=== PATIENT | female | born 1945 | race Caucasian/White ===

== ENCOUNTER → 2017-10-01 | Outpatient (CLI) | payer OTHER ==
[~2017-10-01] MED LIST: ASPI81EC PO; MAGGLU250 PO; METO50ER PO; ROSU5 PO
== END | disposition home or self-care (01) ==
LOC: PLD 07:49 → LAB SHORT 07:49
DX: C44.212 Basal cell carcinoma of skin of right ear and external auricular canal (principal); L57.8 Other skin changes due to chronic exposure to nonionizing radiation; D22.5 Melanocytic nevi of trunk
CPT/HCPCS: 88305; 88342

== ENCOUNTER → 2017-10-22 | Outpatient (CLI) | payer OTHER | END | disposition home or self-care (01) | LOC: PLD 14:05 → LAB SHORT 14:05 | DX: L85.8 Other specified epidermal thickening (principal) | CPT/HCPCS: 88305 ==

== ENCOUNTER → 2018-01-18 | Outpatient (CLI) | payer OTHER | LOC: LAB SHORT 14:42 → PLD 14:42 | DX: C44.310 Basal cell carcinoma of skin of unspecified parts of face (principal) | CPT/HCPCS: 88305 ==

== ENCOUNTER → 2019-08-09 | Outpatient (CLI) | payer OTHER | END | disposition home or self-care (01) | LOC: PLD 12:11 → LAB SHORT 12:11 | DX: D04.71 Carcinoma in situ of skin of right lower limb, including hip (principal) | CPT/HCPCS: 88305 ==

== ENCOUNTER → 2020-09-29 | Outpatient (CLI) | payer OTHER ==
[~2020-09-29] MED LIST changes: +CLIMARA1 EACH TOP; +MELO7.5 PO; +OMEP20ER PO; +Ventolin/Prove6.7 GM INH
== END | disposition home or self-care (01) ==
LOC: LAB EV 11:39 → LAB SHORT 11:39
DX: N39.0 Urinary tract infection, site not specified (principal)
CPT/HCPCS: 87077; 87086; 87186

== ENCOUNTER 2020-11-17 11:50 | Emergency (ER) | payer OTHER ==
[~2020-11-17] VITALS: Ht 154.9 cm; Wt 61.2 kg
[~2020-11-17 11:50] MED LIST changes: -CLIMARA1 EACH TOP; -MELO7.5 PO; -OMEP20ER PO; -Ventolin/Prove6.7 GM INH
[2020-11-17] MEDS ORDERED: MELO7.5 PO (11:58)
[2020-11-17] MEDS ORDERED: CLIMARA1 EACH TOP (11:58)
[2020-11-17] MEDS ORDERED: OMEP20ER PO (11:58)
[2020-11-17] MEDS ORDERED: Ventolin/Prove6.7 GM INH (11:59)
[2020-11-17 12:17] LABS: BASOPHILS ABSOLUTE AUTO 0.03 K/mm3 (0.00-0.23); BASOPHILS PERCENT AUTO 1 % (0-2); EOSINOPHILS PERCENT AUTO 2 % (0-6); Hematocrit 40.7 % (33.0-51.0); Hemoglobin 13.5 g/dL (11.5-16.0); IMMATURE GRAN ABSOLUTE AUTO 0.01 K/mm3 (0.00-0.10); IMMATURE GRAN PERCENT AUTO 0 % (0-1); LYMPHOCYTES ABSOLUTE AUTO 1.52 K/mm3 (0.84-5.20); LYMPHOCYTES PERCENT AUTO 32 % (21-46); MONOCYTES ABSOLUTE AUTO 0.64 K/mm3 (0.16-1.47); MONOCYTES PERCENT AUTO 13 % (4-13); Mean Corpuscular HGB 31.5 pg (26.0-34.0); Mean Corpuscular HGB Conc 33.2 g/dL (31.5-36.5); Mean Corpuscular Volume 95 fL (80-100); Mean Platelet Volume 10.2 fL (9.1-12.4); NEUTROPHILS ABSOLUTE AUTO 2.48 K/mm3 (1.96-9.15); NEUTROPHILS PERCENT AUTO 52 % (41-73); Platelet Count 251 K/mm3 (150-400); RDW Coefficient Variation 11.8 % (11.7-14.2); RDW Standard Deviation 40.7 fL (35.1-46.3); Red Blood Cell Count 4.28 M/mm3 (3.80-5.20); White Blood Cell Count 4.78 K/mm3 (4.00-11.30)
[2020-11-17 12:36] LABS: Alanine Aminotransfer (ALT/SGP 26 U/L (12-78); Albumin, Blood 3.8 g/dL (3.4-5.0); Albumin/Globulin Ratio 1.2 (0.8-1.8); Alk Phos 80 U/L (50-136); Anion Gap 6 mmol/L (6-16); Aspartate Aminotrans (AST/SGOT 20 U/L (12-37); Bilirubin, Total 0.2 mg/dL (0.1-1.0); Blood Urea Nitrogen 13 mg/dL (8-24); Bun/Creatinine Ratio 14.1 (12.0-20.0); CO2, Blood 25 mmol/L (21-32); Calcium, Blood 8.8 mg/dL (8.5-10.1); Chloride, Blood 107 mmol/L (98-108); Creatinine, Blood 0.92 mg/dL (0.40-1.00); Globulin, Blood 3.1 g/dL (2.2-4.0); Glomerular Filtration Rate >60 (60-); Glucose, Blood 95 mg/dL (70-99); Potassium, Blood 3.8 mmol/L (3.5-5.5); Sodium, Blood 138 mmol/L (136-145); Total Protein, Blood 6.9 g/dL (6.4-8.2); Troponin I <0.015 ng/mL (0.000-0.040)
== END 2020-11-17 13:43 | disposition home or self-care (01) ==
LOC: ER 11:50
PROVIDERS: Emergency Medicine
DX: R55 Syncope and collapse (principal); R00.2 Palpitations; Z88.2 Allergy status to sulfonamides; Z79.82 Long term (current) use of aspirin; Z79.899 Other long term (current) drug therapy
CPT/HCPCS: 36415; 80053; 84484; 85025; 93005; 93010; 99284-25

== ENCOUNTER → 2022-02-10 | Outpatient (CLI) | payer OTHER ==
[~2022-02-10] MED LIST changes: +CLIMARA1 EACH TOP; +MELO7.5 PO; +OMEP20ER PO; +Ventolin/Prove6.7 GM INH
== END ==
LOC: LAB SHORT 11:05
DX: D48.5 Neoplasm of uncertain behavior of skin (principal)

== ENCOUNTER → 2022-08-14 | Outpatient (CLI) | payer OTHER | END | disposition home or self-care (01) | LOC: LAB SHORT 12:24 → PLD 12:24 | DX: C44.519 Basal cell carcinoma of skin of other part of trunk (principal) | CPT/HCPCS: 88305 ==

== ENCOUNTER → 2023-11-10 | Outpatient (CLI) | payer OTHER | LOC: LAB SHORT 14:57 → LAB 14:57 | DX: C44.519 Basal cell carcinoma of skin of other part of trunk (principal); C44.719 Basal cell carcinoma of skin of left lower limb, including hip | CPT/HCPCS: 88305 ==

== ENCOUNTER 2024-03-10 07:27 | Day surgery (SDC) | payer OTHER ==
[~2024-03-10] VITALS: Ht 154.9 cm; Wt 62.1 kg
[~2024-03-10 07:27] MED LIST changes: +Lidocaine HCl/Pf 1% 5 ML VIAL ONE; +NS 500 ML IV ONE; +Triamcinolone Inj Susp 40 MG / ML 1ML Vial ONE
[2024-03-10] MEDS ORDERED: ATEN50 PO (07:46)
[2024-03-10] MEDS ORDERED: NS 500 ML IV ONE (07:58)
[2024-03-10] MEDS ORDERED: Midazolam HCl 1MG / ML 2ML Vial ONE (08:16)
[2024-03-10] MEDS ORDERED: FentaNYL Citrate 50 MCG/ML 2 ML Injection ONE (08:16)
[2024-03-10] MEDS ORDERED: Moxifloxacin HCL 0.5 MG/0.1 ML 0.4MLSYR XX ONE (08:35)
[2024-03-10] MEDS ORDERED: Balanced Salt Epinephrine Irrigation Solution 500 mL IR ONE (08:35)
[2024-03-10 08:54] VITALS: BP 122/62
--- NOTE | 2024-03-10 09:18 | NUR ---
03/10/24 0918 ANTONETTE URIBE PT BARRY IN FOR FULL DC INSTRUCTIONS
== END 2024-03-10 09:15 | disposition home or self-care (01) ==
LOC: ORSCSDS 07:27
PROVIDERS: Ophthalmology
PROC: 08RK3JZ Replacement of Left Lens with Synthetic Substitute, Percutaneous Approach (ICD-10-PCS; principal; 2024-03-10 08:30)
DX: H25.812 Combined forms of age-related cataract, left eye (principal); H52.202 Unspecified astigmatism, left eye; J45.909 Unspecified asthma, uncomplicated; K21.9 Gastro-esophageal reflux disease without esophagitis; Z79.82 Long term (current) use of aspirin; Z79.899 Other long term (current) drug therapy
CPT/HCPCS: C1713; J2001; J2250; J3010; J3301; J7040; V2632

== ENCOUNTER 2024-03-17 07:18 | Day surgery (SDC) | payer OTHER ==
[~2024-03-17] VITALS: Ht 152.4 cm; Wt 61.4 kg
[~2024-03-17 07:18] MED LIST changes: +ATEN50 PO; +Balanced Salt Epinephrine Irrigation Solution 500 mL IR SCH; +Lidocaine HCl/Pf 1% 5 ML VIAL XX SCH; +Moxifloxacin HCL 0.5 MG/0.1 ML 0.4MLSYR RIGHTEYE SCH; +PHENYLEPHRINE\\TROPICAMIDE\\TETRACAINE OPHTHALMIC DILATING SOLN RIGHTEYE PRN; +Povidone-Iodine 450 DROP/30 ML Solution RIGHTEYE SCH; +Triamcinolone Inj Susp 40 MG / ML 1ML Vial INJ SCH
[2024-03-17] MEDS ORDERED: VITAMIN D (07:36)
[2024-03-17] MEDS ORDERED: ESTRADIOL 0.5 MG TAB (07:37)
[2024-03-17] MEDS ORDERED: CALCIUM (07:38)
[2024-03-17] MEDS ORDERED: MULTIVITAMIN (07:39)
[2024-03-17] MEDS ORDERED: VITAMIN E (07:39)
[2024-03-17] MEDS ORDERED: FISH OIL (07:39)
[2024-03-17] MEDS ORDERED: NS 500 ML IV ONE (07:51)
--- NOTE | 2024-03-17 07:55 | NUR ---
03/17/24 0755 Poornima Abernathy PATIENT WITH CALL LIGHT WITHIN REACH
[2024-03-17] MEDS ORDERED: Midazolam HCl 1MG / ML 2ML Vial ONE (07:58)
[2024-03-17] MEDS ORDERED: FentaNYL Citrate 50 MCG/ML 2 ML Injection ONE (07:58)
[2024-03-17] MEDS ORDERED: Tetracaine HCl 0.5% Opth Soln 15 ml RIGHTEYE ONE (08:25)
[2024-03-17 08:56] VITALS: BP 105/59
== END 2024-03-17 08:58 | disposition home or self-care (01) ==
LOC: ORSCSDS 07:18
PROVIDERS: Ophthalmology
PROC: 08RJ3JZ Replacement of Right Lens with Synthetic Substitute, Percutaneous Approach (ICD-10-PCS; principal; 2024-03-17 08:30)
DX: H25.811 Combined forms of age-related cataract, right eye (principal); Z96.1 Presence of intraocular lens; J45.909 Unspecified asthma, uncomplicated; Z79.82 Long term (current) use of aspirin; Z79.899 Other long term (current) drug therapy
CPT/HCPCS: J2001; J2250; J3010; J3301; J7040; V2632

== ENCOUNTER 2024-12-16 11:38 | Observation (INO) | payer OTHER ==
[~2024-12-16] VITALS: Ht 154.9 cm; Wt 59.4 kg
[2024-12-16] VITALS (14 sets, daily range): BP systolic 100–136; BP diastolic 51–90
[~2024-12-16 11:38] MED LIST changes: -Balanced Salt Epinephrine Irrigation Solution 500 mL IR SCH; +CALCIUM; +ESTRADIOL 0.5 MG TAB; +FISH OIL; -Lidocaine HCl/Pf 1% 5 ML VIAL ONE; -Lidocaine HCl/Pf 1% 5 ML VIAL XX SCH; -MAGGLU250 PO; +MAGNESIUM GLU27.5 M1 PO; +MULTIVITAMIN; -Moxifloxacin HCL 0.5 MG/0.1 ML 0.4MLSYR RIGHTEYE SCH; -NS 500 ML IV ONE; -PHENYLEPHRINE\\TROPICAMIDE\\TETRACAINE OPHTHALMIC DILATING SOLN RIGHTEYE PRN; -Povidone-Iodine 450 DROP/30 ML Solution RIGHTEYE SCH; -Triamcinolone Inj Susp 40 MG / ML 1ML Vial INJ SCH; -Triamcinolone Inj Susp 40 MG / ML 1ML Vial ONE; +VITAMIN D; +VITAMIN E
[2024-12-16] MEDS ORDERED: SYNTHROID25 M12 PO (12:11)
[2024-12-16] MEDS ORDERED: Piperacillin/Tazobactam Sod 4.5 GM in NS 100 ML IV ONE (12:50)
[2024-12-16] MEDS ORDERED: Lactated Ringer's 1,000 ML IV SCH (13:20)
[2024-12-16] MEDS ORDERED: Bupivacaine 0.25% Epi 1:200000 30 ML Vial ONE (13:30)
[2024-12-16] MEDS ORDERED: FentaNYL Citrate 50 MCG/ML 2 ML Injection ONE (13:32)
[2024-12-16] MEDS ORDERED: propofoL 20 ML IV ONE (13:32)
[2024-12-16] MEDS ORDERED: FLU VACC TS2024-25(6MOS UP)/PF 45 MCG/0.5 ML SYRINGE IM ONE (13:40)
[2024-12-16] MEDS ORDERED: SuccINYLCHOLINE Chloride 100 MG/5 ML 5MLSYR ONE (13:43)
[2024-12-16] MEDS ORDERED: Dexamethasone Sod Phos 10 MG/ML 1ML VIAL ONE (13:54)
[2024-12-16] MEDS ORDERED: Ketorolac Tromethamine 30mg Vial ONE (13:54)
[2024-12-16] MEDS ORDERED: Ondansetron HCl 2 MG / ML 2ML Vial ONE (13:54)
[2024-12-16] MEDS ORDERED: Sugammadex Sodium 200 MG/2ML SDV (100 MG/ML) ONE (13:58)
--- NOTE | 2024-12-16 14:17 | NUR ---
12/16/24 1417 Angel,Stacey ZOSYN 4.5G IV GIVEN BY IN THE OR AT 1357.
--- NOTE | 2024-12-16 15:20 | NUR ---
ARRIVAL TO SURGICAL UNIT POST OP VIA GOURNEY, SLID TO HOSPITAL BED VIA SLIDER SHEET. ALERT, ORIENTED, & PLEASANT. ABD SOFT w/ LAP SITES x 3. LUNGS CLEAR. HRR. DENIES N/V OR PAIN. SNACKS & DRINKS GIVEN. SPOUSE TO SIDE.
[2024-12-16] MEDS ORDERED: HYDROcodone 10-APAP 325 TAB PO PRN (16:10)
[2024-12-16] MEDS ORDERED: DEXTROMETHORPHAN/BENZOCAINE 1 EACH LOZENGE MT PRN (16:10)
--- NOTE | 2024-12-16 17:01 | NUR ---
ASSUMED CARE OF PT FROM ANURAG Wilson RN. PT TALKING ON PHONE, CALL LIGHT IN REACH.
[2024-12-16] MEDS ORDERED: Piperacillin/Tazobactam Sod 3.375 GM in NS 100 ML IV SCH (18:00)
[2024-12-16] MEDS ORDERED: Atenolol 50 MG Tab PO SCH (18:36)
[2024-12-16] MEDS ORDERED: Magnesium Oxide 400 MG Tab PO SCH (21:00)
[2024-12-17 00:21] VITALS: BP 125/54
[2024-12-17 04:58] VITALS: BP 108/49
[2024-12-17 05:03] LABS: BASOPHILS ABSOLUTE AUTO 0.01 K/mm3 (0.00-0.23); BASOPHILS PERCENT AUTO 0 % (0-2); EOSINOPHILS PERCENT AUTO 0 % (0-6); Hematocrit 30.5 % (33.0-51.0); Hemoglobin 10.6 g/dL (11.5-16.0); IMMATURE GRAN ABSOLUTE AUTO 0.02 K/mm3 (0.00-0.10); IMMATURE GRAN PERCENT AUTO 0 % (0-1); LYMPHOCYTES ABSOLUTE AUTO 0.48 K/mm3 (0.84-5.20); LYMPHOCYTES PERCENT AUTO 6 % (21-46); MONOCYTES ABSOLUTE AUTO 0.37 K/mm3 (0.16-1.47); MONOCYTES PERCENT AUTO 5 % (4-13); Mean Corpuscular HGB 32.3 pg (26.0-34.0); Mean Corpuscular HGB Conc 34.8 g/dL (31.5-36.5); Mean Corpuscular Volume 93 fL (80-100); Mean Platelet Volume 9.5 fL (9.1-12.4); NEUTROPHILS ABSOLUTE AUTO 6.83 K/mm3 (1.96-9.15); NEUTROPHILS PERCENT AUTO 89 % (41-73); Platelet Count 220 K/mm3 (150-400); RDW Standard Deviation 41.2 fL (35.1-46.3); Red Blood Cell Count 3.28 M/mm3 (3.80-5.20); White Blood Cell Count 7.71 K/mm3 (4.00-11.30)
[2024-12-17 05:26] LABS: Bun/Creatinine Ratio 12.3 (12.0-20.0); Calcium, Blood 7.3 mg/dL (8.5-10.1); Creatinine, Blood 1.06 mg/dL (0.40-1.00); Potassium, Blood 3.2 mmol/L (3.5-5.5)
[2024-12-17] MEDS ORDERED: Ondansetron HCl 2 MG / ML 2ML Vial IV PRN (05:35)
--- NOTE | 2024-12-17 05:37 | NUR ---
SHIFT SUMMARY AOX4. VSS. POD 1-LAP APPY. x3 LAP SITES TO ABD W/TISSUE ADHESIVE. NO DRAINAGE NOTED. SURGICAL SITES C/D/I. DENIES PASSING FLATUS. MIN PAIN 01/05 TO R SIDE ABD, PAIN MANAGED W/ TAB AMY, STATES @HOME HER PAIN SHOULD BE ABLE TO BE MANAGED W/TYLENOL. THIS AM PT REPORTS NAUSEA, BUT ALSO REPORTS IT COULD BE FROM LACK OF FOOD R/T LACK OF APPETITE. ULICES SM SIPS FLUIDS. CALL LIGHT IN REACH.
[2024-12-17] MEDS ORDERED: Omeprazole 20 MG CapCR PO SCH (06:00)
[2024-12-17] MEDS ORDERED: Levothyroxine Sodium 0.025 MG Tab PO SCH (06:00)
[2024-12-17 07:17] VITALS: BP 111/53
[2024-12-17] MEDS ORDERED: Potassium Chloride 20 MEQ TabCR PO ONE (08:00)
[2024-12-17] MEDS ORDERED: Rosuvastatin Calcium 10 MG Tab PO SCH (09:00)
[2024-12-17] MEDS ORDERED: HYDROcodone 5-APAP 325 TAB PO PRN (10:30)
[2024-12-17] MEDS ORDERED: Norco 5-325 Ta1 EACH PO (12:35)
--- NOTE | 2024-12-17 13:15 | NUR ---
DISCHARGE POD 1 LAP APPY PT AMBULATING FREQUENTLY IN THE HALLS. PASSING FLATUS. APPETITE IMPROVING, PT REPORTS CONSISTANT MINIMAL NAUSEA. BUT ABLE TO TOLERATE EATING. PAIN CONTROLLED PER EMAR. ALL INSTRUCTIONS GONE OVER WITH PATIENT. CURRENTLY GETTING DRESSED AND WILL CALL ONCE READY.
== END 2024-12-17 13:45 | disposition home or self-care (01) ==
LOC: ER 11:38 → SURS 11:39 → ER 17:15 → SURS 12-17 13:45
PROVIDERS: Surgery; ADMIT Internal Medicine
PROC: 0DTJ4ZZ Resection of Appendix, Percutaneous Endoscopic Approach (ICD-10-PCS; principal; 2024-12-16 14:30)
DX: K35.80 Unspecified acute appendicitis (principal); K38.1 Appendicular concretions; E78.5 Hyperlipidemia, unspecified; K21.9 Gastro-esophageal reflux disease without esophagitis; I47.10 Supraventricular tachycardia, unspecified; Z88.2 Allergy status to sulfonamides; Z79.890 Hormone replacement therapy; Z79.899 Other long term (current) drug therapy
CPT/HCPCS: 36415; 80048; 83605; 85025; A9270; J0330; J1100; J1885; J2405; J2543; J2704; J3010; J7120